=== PATIENT | female | born 1985 | race Caucasian/White ===

== ENCOUNTER 2016-11-17 11:55 | Outpatient (CLI) ==
[2016-04-20 11:19] VITALS: BMI 37.0
--- NOTE | 2016-11-17 16:03 | MRI ---
EXAM: MRI of the left knee without contrast COMPARISON: MRI of the left knee 10/20/2014. Left knee radiographs 10/15/2014. HISTORY: Left knee pain. Injury years ago. TECHNIQUE: Multiplanar noncontrast MR images of the left knee were acquired using a 1.2 Rosa magne t. FINDINGS: The medial and lateral menisci are intact without identification of a surfacing meniscal tear. No parameniscal cyst. Mucoid degeneration versus minimal sprain of the anterior cruciate ligament with some hyperintense s ignal along the ligament though intact fibers are identified. The posterior cruciate ligaments inta ct. Medial collateral ligament, lateral collateral ligament complex and posterolateral corner ligam ents are intact. Mild distal quadriceps minimal patellar tendinosis. No evidence of a tendon tear. 5 mm lateral subluxation of the patella. There is chondromalacia patella with minimal fibrillation of the cartilage of the patella. No full- thickness cartilage defect. No evidence of an acute fracture, osteomyelitis or focal marrow lesion. Small joint effusion. Slit-like popliteal cyst. No osteochondral body. No soft tissue mass ident ified. IMPRESSION: 1. Intact menisci. 2. Chondromalacia patella/minimal patellar chondrosis. 3. Mild patellar/quadriceps tendinosis with mild lateral subluxation of the patella. 4. Small joint effusion. Slit-like popliteal cyst. 4. Mucoid degeneration versus minimal sprain of the anterior cruciate ligament with intact fibers i dentified.
== END 2016-11-17 11:56 | disposition home or self-care (01) ==
LOC: RAD 11:55
PROVIDERS: ATTEND Emergency Medicine
DX: M25.562 Pain in left knee (principal)

== ENCOUNTER 2017-02-10 08:54 | Outpatient (CLI) ==
[2016-04-20 11:19] VITALS: BMI 37.0
--- NOTE | 2017-02-10 11:21 | MRI ---
EXAM: MRI of the right knee without contrast COMPARISON: None available. HISTORY: Right knee pain. TECHNIQUE: Multiplanar noncontrast MR images of the right knee were acquired using a 1.2 Rosa magn et. FINDINGS: No recent radiographs of the right knee are available for comparison and radiographic cor relation is recommended. The medial and lateral menisci are intact without identification of a surfacing meniscal tear. The anterior and posterior cruciate ligaments are intact. Small cyst within the femur and tibia marisol ng the margin of the intercondylar notch/tibial spines which likely degenerative in nature. The med ial collateral ligament, lateral collateral ligament complex and posterolateral corner ligaments are intact. Minimal patellar/quadriceps tendinosis without abnormal subluxation of the patella. Subcu taneous edema anteriorly. There is moderate thinning of the cartilage of the patella with fissuring of the cartilage along the median ridge as well as the medial and lateral facet. No evidence of an acute fracture or osteomye litis. Small bone island within the lateral femoral condyle. Small joint effusion. Slit-like popli teal cyst. No osteochondral body within the joint. IMPRESSION: 1. Intact menisci. 2. Minimal patellar/quadriceps tendinosis. Subcutaneous edema anteriorly. 3. Moderately severe patellar chondrosis. Small bone island within the lateral femoral condyle.
== END 2017-02-10 08:55 | disposition home or self-care (01) ==
LOC: RAD 08:54
PROVIDERS: ATTEND Emergency Medicine
DX: M25.561 Pain in right knee (principal)

== ENCOUNTER 2017-11-27 11:31 | Outpatient (CLI) ==
[2016-04-20 11:19] VITALS: BMI 37.0
== END 2017-11-27 11:32 | disposition home or self-care (01) ==
LOC: RHC-LAB 11:31
PROVIDERS: ATTEND Nurse Practitioner Family
DX: J02.9 Acute pharyngitis, unspecified (principal)
CPT/HCPCS: 87651

== ENCOUNTER 2017-12-07 16:07 | Outpatient (CLI) ==
[2016-04-20 11:19] VITALS: BMI 37.0
== END 2017-12-07 16:08 | disposition short-term general hospital (02) ==
LOC: AMBL 16:07
PROVIDERS: ATTEND Emergency Medicine
DX: T42.8X2A Poisoning by antiparkinsonism drugs and other central muscle-tone depressants, intentional self-harm, initial encounter (principal); R40.4 Transient alteration of awareness; R53.83 Other fatigue; R47.81 Slurred speech

== ENCOUNTER 2018-01-19 11:00 | Outpatient (RCR) ==
[2016-04-20 11:19] VITALS: BMI 37.0
--- NOTE | 2018-01-03 13:28 | RS.OPPTEV2 ---
Date of Note: 01/03/18 Visit #: 1 Date of Evaluation: 01/03/18 Payer Source: Medicaid Treatment Diagnosis: Left knee pain, Chondromalacia patella History of Condition/Mechanism of Injury:: Patient reports having problems with knee pain since she was 14 years old. States both knees bother her off and on. Reports no patellar dislocation. Prior Level of Function.....Patient was independent with: ADL's, Self Care, Caregiving, Ambulation/Mobility, Community Integration/Access Functional Limitations: Sleep, ADL's, Standing, Bending, Squatting, Ambulation, Community Access/Integration Current Subjective/complaints:: Patient reports left knee pain. States she has popping and grinding in the knee with movement. Reports limited ROM. Reports she has swelling at times in the left knee with activity. States she has tried ice packs to the knees. Reports pain with walking short distances in her home. Treatment Side (optional): Left Medical History Medical History Comments:: History of chronic back pain Surgical History Comments:: No surgeries Smoking Status: Former smoker Hx Home Medications: Ibuprofen Patient's Goals: Her goal is to get relief of knee pain. Pain Assessment - Pain Description Pain Location: left knee Current Pain Intensity: 8.5/10 Worst Pain Intensity: not quantified Functional Outcome Measure LE Functional Scale: 4 (4/80=95% impairment (reviewed w/ patient to make sure of accurate scoring)) - G Codes & Severity Modifier G Codes & Modifier: NA Source of G Code score: NA Observation - Observation Inspection: Left knee exhibits infrapatellar bursitis. Both knees demonstrate friction burn/scabbing over the tibial tuberosity. In standing with feet pointed forward, bilateral patella face laterally. She exhibits slight right genu varus and less longitudinal arch on the right LE. Girth Measurement Lower: superior patella: left 44.5 cm, right 43.5 cm. mid patella: left 43 cm, right 43 cm. inferior patella: left 40.5 cm, right 39 cm (left was meaured over infrapatellar bursa) Gait - Gait Pattern Gait Comments: Patient ambulates without an assistive device independently. She demonstrates no significant gait deviation. - Left Knee ROM Left Knee Extension: full extension Left Knee Flexion: 90 (degrees AROM) Knee ROM Limitations: Pain Comments: *patient first flexes the knee to ~35 degrees, after encouragment to try a little more, she flexes the knee to 90 degrees. Demonstrates crepitus with ROM. - Right Knee ROM Right Knee Extension: full extension Right Knee Flexion: 85 (degrees AROM) Knee ROM Limitations: Pain Comments: Crepitus present with ROM. - Left Knee Strength Left Knee Extension: 4- Good- Left Knee Flexion: 4+ Good + Comments: Left hip generally 4-/5 throughout. - Right Knee Strength Right Knee Extension: 4 Good Right Knee Flexion: 4+ Good + Comments: Right hip generally 4 to 4+/5 throughout. - Special Tests Comments: Unable to perform valid Special Tests due to patients reports of pain with all movement and testing. She does not demonstrate hypermobility of either knee joint. Palpation Comments:: Patient reports tenderness with compression to the patella. Reports tenderness with palpation to the quad and patellar tendon and over the infrapatellar bursa. Sensation - Sensation Right Lower Extremity: Intact/Normal Left Lower Extremity: Intact/Normal Additional Comments: Additional Comments: Bilateral HS are tight. In supine, SLR on the left to 40 degrees, right SLR to 30-35 degrees. Demonstrates tight rectus femoris bilaterally. Interventions - Exercise/Activities/Manual Therapy Exercises/Activities: Patient instructed in HS stretch, SLR, and hip adduction isometrics (pillow squeeze) for HEP. Total minutes of Exercise: 10 mins Manual Therapy: NA HOME EXERCISE PROGRAM: HS stretch, SLR, and hip adduction isometrics (pillow squeeze) - Other Services Other Treatments/Services: Taping/Strapping Treatment Details: kinesiotape applied to left knee for lateral stabilization of the patella. Patient instructed that she should remove the tape if it is uncomfortable or she does not like it for any reason. - Charges Timed Code Treatment Minutes: 10 mins Total Treatment Time: 40 mins Procedures billed for this date of service:: EVAL LOW EVALUATION COMPLEXITY LEVEL EVALUATION COMPLEXITY LEVEL: HISTORY: Medium (History of chronic back and knee pain), EXAM OF BODY SYSTEMS: Medium (Reports all mobility limited:amb, transfers , selfcare, ADL's, etc), CLINICAL PRESENTATION: Low, CLINICAL DECISION MAKING: Low Assessment Assessment: Patient presents to therapy with diagnosis of left Chondromalacia patella. She reports knee pain with all ambulation and rates herself to be 95% impaired on LE functional scale. She demonstrates infrapatellar bursitis on the left and exhibits limited knee flexion bilaterally. She demonstrates probable chronic patellar maltracking. She will benefit from modalities to reduce infrapatellar bursitis and stretching and strengthening exercises to improve patellar tracking. Patient Education: Education of diagnosis, Body/Joint mechanics, Home Exercise Program, Activity Modification, Education of Plan of Care Rehab Potential: Good Short Term Goals Goal #1: Pt independent in and compliant with HEP. Goal to be met by: 01/13/18 Goal #2: Left knee flexion to 110 degrees actively. Goal to be met by: 01/17/18 Goal #3: Left SLR to 45-50 degrees. Goal to be met by: 01/17/18 Superintendent Drivers Goals Goal #1: Pt knows HEP and to continue ex's to maintain functional level at D/C. Goal to be met by: 02/17/18 Goal #2: Self score on LE functional scale improved to 40/80. Goal to be met by: 02/17/18 Goal #3: Pt to amb. community distances with minimal left knee pain. Goal to be met by: 02/17/18 Goal #4: Pt able to perform daily selfcare and ADL's with minimal left knee pain. Goal to be met by: 02/17/18 Plan - Treatment to be Provided Procedures: Therapeutic Exercises, Therapeutic Activity, Splinting/Taping, Patient Education Modalities: Electrical Stimulation, Ultrasound/Phonophoresis, Cryotherapy, Hot Packs - Treatment Plan Frequency: 3 X week Duration: 6 weeks ORDER # VISITS AND/OR THROUGH DATE: 02/17/18 - Treatment Code (1) Left knee pain Code(s): M25.562 - PAIN IN LEFT KNEE Qualifiers: Chronicity: chronic Qualified Code(s): M25.562 - Pain in left knee; G89.29 - Other chronic pain; G89.29 - Other chronic pain (2) Maltracking of left patella Code(s): M22.8X2 - OTHER DISORDERS OF PATELLA, LEFT KNEE Comments: M22.8X2 (3) Chondromalacia patellae of left knee Code(s): M22.42 - CHONDROMALACIA PATELLAE, LEFT KNEE Comments: M22.42
--- NOTE | 2018-01-05 15:41 | RS.OPPTDN ---
Subjective Date of Note: 01/05/18 Visit #: 2 Date of Evaluation: 01/03/18 Payer Source: Medicaid Treatment Diagnosis: Left knee pain, Chondromalacia patella Current Subjective/complaints:: patient reports she is performing HS stretch on both legs. States she believes she has had the swelling at the base of the left knee for over a year. Patient states she feels like the kinesio tape to the left knee helped. States it just came off this morning. - Treatment Modality: Ultrasound Parameters/Method Applied: X 7 mins continuous @ 1.5 w/cm2 around the perimeter of the patella, X 5 mins pulsed @ 1.5 w/cm2 directly over the infrapatella bursa. Patient Position: Supine Interventions - Exercise/Activities/Manual Therapy Exercises/Activities: patient assisted with left HS and heel cord stretch. Performed SLR, quad set, hip adduction isometrics, and resisted hip adduction with red theraband. Total minutes of Exercise: X 12 mins Manual Therapy: NA HOME EXERCISE PROGRAM: HS stretch, SLR, and hip adduction isometrics (pillow squeeze) - Other Services Other Treatments/Services: Taping/Strapping Treatment Details: One strip applied for lateral patellar stabilization to the left knee. - Charges Timed Code Treatment Minutes: 24 mins Total Treatment Time: 34 mins Procedures billed for this date of service:: US, EX Assessment: Patient reports she is performing the HS stretching as instructed at home. Reports continued knee pain. Patient Education: Education of diagnosis, Body/Joint mechanics, Home Exercise Program Short Term Goals Goal #1: Pt independent in and compliant with HEP. Goal to be met by: 01/13/18 Goal #2: Left knee flexion to 110 degrees actively. Goal to be met by: 01/17/18 Goal #3: Left SLR to 45-50 degrees. Goal to be met by: 01/17/18 Progress towards Goal:: Progressing Resident Caregiver Goals Goal #1: Pt knows HEP and to continue ex's to maintain functional level at D/C. Goal to be met by: 02/17/18 Goal #2: Self score on LE functional scale improved to 40/80. Goal to be met by: 02/17/18 Goal #3: Pt to amb. community distances with minimal left knee pain. Goal to be met by: 02/17/18 Goal #4: Pt able to perform daily selfcare and ADL's with minimal left knee pain. Goal to be met by: 02/17/18 Plan PLAN OF CARE EXPIRES ON:: 02/17/18 ORDER # VISITS AND/OR THROUGH DATE: 02/17/18 PLAN: Progress streching and stability exercises.
--- NOTE | 2018-01-09 12:01 | RS.OPPTDN ---
Subjective Date of Note: 01/09/18 Visit #: 3 Date of Evaluation: 01/03/18 Payer Source: Medicaid Treatment Diagnosis: Left knee pain, Chondromalacia patella Current Subjective/complaints:: Patient reports she is doing initial HEP. States she cannot stand for long periods due to pain. Pain Assessment - Pain Description Pain Location: Left knee Current Pain Intensity: 8/10 before and after treatment - Treatment Modality: Ultrasound Parameters/Method Applied: [id number] at 1.5w/cm2 to the left knee joint prior to EX. Patient Position: Supine Interventions - Exercise/Activities/Manual Therapy Exercises/Activities: Left HS and heel cord stretch. Performed SLR, quad set, hip adduction, SLR/VMO, SAQ, ham sets, and isometric hip add with ball. In sitting, LAQ and isometric ham sets, 2s/10reps each. In standing mini-squats and ham curls, 2s/10reps each. Ended with 2mins on stationary bike retro revolutions for hamstrings. Total minutes of Exercise: 25mins Manual Therapy: NA HOME EXERCISE PROGRAM: HS stretch, SLR, and hip adduction isometrics (pillow squeeze) - Charges Timed Code Treatment Minutes: 35mins Total Treatment Time: 35mins Procedures billed for this date of service:: US, EX Assessment: Patient demos exercises correct ly with cues and no distress noted. She continues to have a high pain rating. Patient Education: Education of diagnosis, Body/Joint mechanics, Home Exercise Program Patient demonstrates compliance with HEP?: Yes Short Term Goals Goal #1: Pt independent in and compliant with HEP. Goal to be met by: 01/13/18 Progress towards Goal:: Progressing Goal #2: Left knee flexion to 110 degrees actively. Goal to be met by: 01/17/18 Progress towards Goal:: Partially Met Goal #3: Left SLR to 45-50 degrees. Goal to be met by: 01/17/18 Progress towards Goal:: Partially Met Care Home Goals Goal #1: Pt knows HEP and to continue ex's to maintain functional level at D/C. Goal to be met by: 02/17/18 Progress towards goal: Progressing Goal #2: Self score on LE functional scale improved to 40/80. Goal to be met by: 02/17/18 Goal #3: Pt to amb. community distances with minimal left knee pain. Goal to be met by: 02/17/18 Goal #4: Pt able to perform daily selfcare and ADL's with minimal left knee pain. Goal to be met by: 02/17/18 Plan PLAN OF CARE EXPIRES ON:: 02/17/18 ORDER # VISITS AND/OR THROUGH DATE: 02/17/18 PLAN: Continue modalities and progress exercise to reduce pain and increase functional activity level.
--- NOTE | 2018-01-12 15:47 | RS.OPPTDN ---
Subjective Date of Note: 01/12/18 Visit #: 4 Date of Evaluation: 01/03/18 Payer Source: Medicaid Treatment Diagnosis: Left knee pain, Chondromalacia patella Current Subjective/complaints:: Patient reports first treatment of US seems to have reduced pain. She reports she is working on HEP as instructed. Pain Assessment - Pain Description Pain Location: Left knee - Treatment Modality: Ultrasound Parameters/Method Applied: [id number] at 1.5w/cm2 to the left knee joint prior to EX. Patient in supine. Patient Position: Supine Interventions - Exercise/Activities/Manual Therapy Exercises/Activities: Left HS and heel cord stretch. Performed SLR, quad set, hip adduction, SLR/VMO, SAQ, ham sets, isometric hip add with ball, and isometric ankle inversion with ball. Began red theraband for left ankle resistive DF. In sitting, LAQ and isometric ham sets, 2s/10reps each. Red theraband for ham curls. In standing mini-squats and ham curls, 2s/10reps each. Ended with 4mins on stationary bike retro revolutions for hamstrings. Total minutes of Exercise: 28mins Manual Therapy: NA HOME EXERCISE PROGRAM: HS stretch, SLR, and hip adduction isometrics (pillow squeeze), SLR/VMO - Objective Findings Observations,measurements,etc.: Patient demos good gait pattern with no deviations noted. She demos all basic exercises without difficulty. - Charges Timed Code Treatment Minutes: 38mins Total Treatment Time: 40mins Procedures billed for this date of service:: US, EX2 Assessment: Patient progresses with strengthening exercise and demos good gait pattern without distress, but continues to demo a high pain rating. Patient Education: Body/Joint mechanics, Home Exercise Program Patient demonstrates compliance with HEP?: Yes Short Term Goals Goal #1: Pt independent in and compliant with HEP. Goal to be met by: 01/13/18 Progress towards Goal:: Partially Met Goal #2: Left knee flexion to 110 degrees actively. Goal to be met by: 01/17/18 Progress towards Goal:: Partially Met Goal #3: Left SLR to 45-50 degrees. Goal to be met by: 01/17/18 Progress towards Goal:: Partially Met Api Product Manager Goals Goal #1: Pt knows HEP and to continue ex's to maintain functional level at D/C. Goal to be met by: 02/17/18 Progress towards goal: Progressing Goal #2: Self score on LE functional scale improved to 40/80. Goal to be met by: 02/17/18 Goal #3: Pt to amb. community distances with minimal left knee pain. Goal to be met by: 02/17/18 Goal #4: Pt able to perform daily selfcare and ADL's with minimal left knee pain. Goal to be met by: 02/17/18 Plan PLAN OF CARE EXPIRES ON:: 02/17/18 ORDER # VISITS AND/OR THROUGH DATE: 02/17/18 PLAN: Progress strengthening exercise.
--- NOTE | 2018-01-16 12:07 | RS.OPPTDN ---
Subjective Date of Note: 01/16/18 Visit #: 5 Date of Evaluation: 01/03/18 Payer Source: Medicaid Treatment Diagnosis: Left knee pain, Chondromalacia patella Current Subjective/complaints:: Patient reports left knee pain is somewhat better. States she has pain with walking and other standing activities. States she is working on HEP and will see physician tomorrow. Pain Assessment - Pain Description Pain Location: Left knee Current Pain Intensity: 6-7/10 - Treatment Modality: Ultrasound Parameters/Method Applied: [id number] at 1.5w/cm2 to the left knee joint prior to EX. Patient Position: Supine Interventions - Exercise/Activities/Manual Therapy Exercises/Activities: Left HS and heel cord stretch. Performed quad set, ham sets, isometric hip add with ball, and isometric ankle inversion with ball. Added 1 1/2# cuff weight to SLR, hip abd and SAQ, all 2s/10reps. Red theraband for left ankle resistive DF and ham curl, 2s/10reps each. In sitting, LAQ with 1 1/2# and red theraband for ham sets, 2s/10reps each. 5mins on stationary bike retro revolutions for hamstrings. Total minutes of Exercise: 28mins/33mins Manual Therapy: NA HOME EXERCISE PROGRAM: HS stretch, SLR, and hip adduction isometrics (pillow squeeze), SLR/VMO - Objective Findings Observations,measurements,etc.: Full ROM of the right knee at 130 degrees flexion and extension to neutral. Demos 4+/5 MMT with quads and 5/5 with hams. Demos good gait pattern with no deviations noted today. - Charges Timed Code Treatment Minutes: 38mins Total Treatment Time: 43mins Procedures billed for this date of service:: US, EX2 Assessment: Progressing with strnegth, ROM and demos good gait pattern. Patient Education: Education of diagnosis, Body/Joint mechanics, Home Exercise Program, Activity Modification Patient demonstrates compliance with HEP?: Yes Short Term Goals Goal #1: Pt independent in and compliant with HEP. Goal to be met by: 01/13/18 Progress towards Goal:: Met Goal #2: Left knee flexion to 110 degrees actively. Goal to be met by: 01/17/18 Progress towards Goal:: Met Goal #3: Left SLR to 45-50 degrees. Goal to be met by: 01/17/18 Progress towards Goal:: Met Senior Care Goals Goal #1: Pt knows HEP and to continue ex's to maintain functional level at D/C. Goal to be met by: 02/17/18 Progress towards goal: Partially Met Goal #2: Self score on LE functional scale improved to 40/80. Goal to be met by: 02/17/18 Progress towards goal: Progressing Goal #3: Pt to amb. community distances with minimal left knee pain. Goal to be met by: 02/17/18 Goal #4: Pt able to perform daily selfcare and ADL's with minimal left knee pain. Goal to be met by: 02/17/18 Plan PLAN OF CARE EXPIRES ON:: 02/17/18 ORDER # VISITS AND/OR THROUGH DATE: 02/17/18 PLAN: Will see physician tomorrow. May continue current POC with modalities and progressive exercise to reduce pain and increase functional activity level.
--- NOTE | 2018-01-19 11:57 | RS.OPPTDN ---
Subjective Date of Note: 01/19/18 Visit #: 6 Date of Evaluation: 01/03/18 Payer Source: Medicaid Treatment Diagnosis: Left knee pain, Chondromalacia patella Current Subjective/complaints:: Patient continues to report left knee pain at 05/04. States her follow-up with physician has been rescheduled. She agrees to continue HEP as instructed. Pain Assessment - Pain Description Pain Location: Left knee joint Current Pain Intensity: - Treatment Modality: Ultrasound Parameters/Method Applied: [id number] at 1.5w/cm2 to the left knee joint. Interventions - Exercise/Activities/Manual Therapy Exercises/Activities: Left HS and heel cord stretch. Performed quad set, ham sets, isometric hip add with ball, and isometric ankle inversion with ball. 1 1 /2# cuff weight to SLR, hip abd and increased to 3# for SAQ, all 2s/10reps. Red theraband for left ankle resistive DF and ham curl, 2s/10reps each. Red theraband for hip abd and add with knee in full extension, 2s/10reps. In sitting, LAQ with 1 1/2# and red theraband for ham sets, 2s/10reps each. Leg press 60# and ankle df/pf 60#, 2s/10reps each. 5mins on stationary bike retro revolutions for hamstrings. Total minutes of Exercise: 30mins Manual Therapy: NA HOME EXERCISE PROGRAM: HS stretch, SLR, and hip adduction isometrics (pillow squeeze), SLR/VMO - Objective Findings Observations,measurements,etc.: Patient demos full ROM of the left knee. She demos 4+/5MMT and no signs of distress with resistive strengthening exercises. No gait deviations noted before or after exercise session. - Charges Timed Code Treatment Minutes: 40mins Total Treatment Time: 40mins Procedures billed for this date of service:: US, EX2 Assessment: Patient continues to have a high pain rating but demos full ROM, good strength and no gait deviation. She demos basic HEP and will continue following discharge. Patient Education: Home Exercise Program, Home Safety, Activity Modification, Education of Plan of Care Patient demonstrates compliance with HEP?: Yes Short Term Goals Goal #1: Pt independent in and compliant with HEP. Goal to be met by: 01/13/18 Progress towards Goal:: Met Goal #2: Left knee flexion to 110 degrees actively. Goal to be met by: 01/17/18 Progress towards Goal:: Met Goal #3: Left SLR to 45-50 degrees. Goal to be met by: 01/17/18 Progress towards Goal:: Met Jet Operator Goals Goal #1: Pt knows HEP and to continue ex's to maintain functional level at D/C. Goal to be met by: 02/17/18 Progress towards goal: Met Goal #2: Self score on LE functional scale improved to 40/80. Goal to be met by: 02/17/18 Progress towards goal: Progressing Goal #3: Pt to amb. community distances with minimal left knee pain. Goal to be met by: 02/17/18 Progress towards goal: No Change Goal #4: Pt able to perform daily selfcare and ADL's with minimal left knee pain. Goal to be met by: 02/17/18 Progress towards goal: No Change Plan PLAN OF CARE EXPIRES ON:: 02/17/18 ORDER # VISITS AND/OR THROUGH DATE: 02/17/18 PLAN: Discharge with HEP.
== END 2018-01-22 23:59 ==
PROVIDERS: ATTEND Physician Assistant
DX: M22.42 Chondromalacia patellae, left knee (principal)

== ENCOUNTER 2018-01-31 14:50 | Outpatient (CLI) ==
[2016-11-17 11:59] VITALS: BMI 37.0
--- NOTE | 2018-01-31 15:51 | DI ---
EXAM: Three views of the cervical spine. History: Cervical radiculopathy. Comparison: Cervical spine radiograph 12/08/2011 Findings: No acute fracture or subluxation of the cervical spine. No prevertebral soft tissue swell ing. There is straightening of the normal curvature of the cervical spine. Disc space heights are p reserved. Small cervical ribs are again seen at C7 bilaterally. Impression: No acute osseous abnormality and no significant degenerative changes.
--- NOTE | 2018-01-31 15:57 | DI ---
EXAM: Lumbar spine radiographs. HISTORY: Back pain. COMPARISON: 04/01/2015. TECHNIQUE: Three views of the lumbar spine. FINDINGS: The normal curvature and alignment are maintained. Vertebral body and intervertebral disc heights are normal. No fracture or subluxation identified. Sacral arcuate lines are intact. Soft tissues are unremarkable. Since the prior study, there has been no significant interval change. IMPRESSION: No acute abnormality of the lumbar spine.
== END 2018-01-31 14:51 | disposition home or self-care (01) ==
LOC: RAD 14:50
PROVIDERS: ATTEND Emergency Medicine
DX: M54.12 Radiculopathy, cervical region (principal); M54.9 Dorsalgia, unspecified

== ENCOUNTER 2018-02-14 10:11 | Outpatient (RCR) ==
[2016-11-17 11:59] VITALS: BMI 37.0
--- NOTE | 2018-02-16 11:44 | RS.OPPTEV2 ---
Date of Note: 02/14/18 Visit #: 1 Date of Evaluation: 02/14/18 Payer Source: Medicaid Treatment Diagnosis: Low back pain History of Condition/Mechanism of Injury:: Patient states she has been having back since 2006. She has been attending Pain Management since 2007. States she has had no recent exaggeration of back pain. Prior Level of Function.....Patient was independent with: ADL's, Self Care, Caregiving, Ambulation/Mobility, Community Integration/Access Functional Limitations: Sleep, ADL's, Pushing, Pulling, Lifting, Carrying, Sitting, Standing, Bending, Squatting, Ambulation, Community Access/Integration Current Subjective/complaints:: Patient reports low back pain with any prolonged position. States she has constant pain into the left LE. States she has difficulty sleeping, waking up four or more times a day. States Dr. Soliman wanted her to have therapy on her back. Reports she gets tingling into the left leg to the knee. Medical History Medical History Comments:: History of chronic back pain Surgical History Comments:: No surgeries Smoking Status: Former smoker Hx Home Medications: Did not list medications. Only reports Ibuprofen. Patient's Goals: Her goal is to get some relief of pain. Pain Assessment - Pain Description Pain Location: low back Current Pain Intensity: 9/10 Worst Pain Intensity: not quantified Functional Outcome Measure Oswestry LBP: 76 - G Codes & Severity Modifier G Codes & Modifier: NA Source of G Code score: NA Observation - Observation Posture: Forward Head, Rounded Shoulders, Decreased Lumbar Lordosis Gait - Gait Pattern Gait Comments: Patient ambulates without an assistive device and no significant gait deviations. - ROM Lumbar Flexion: Hand reach to Mid-Shins Sidebending to Left: Reach to Lateral Joint Line Sidebending to Right: Reach to Lateral Joint Line Comments: Lumbar extension is WFL's. Reports discomfort with lumbar flexion and extension. Reports "pulling" in the low back with sidebending bilaterally. - Strength Trunk Rotation: 4 Good Comments: General hip weakness bilaterally 4 to 4+/5. Bilateral knee strength 4 +/5, ankles 5/5. - Special Tests Comments: Unable to perform valid Special Tests due to reports of pain with all ROM and movement in the department. Palpation Comments:: Reports generalized soreness throughout the lumbar spine and SI joint region with palpation. Demostrates minimal increased muscle tone along the lumbar paraspinals. Sensation - Sensation Right Lower Extremity: Intact/Normal Left Lower Extremity: Intact/Normal Additional Comments: Additional Comments: Bilateral SLR to 35 degrees in supine. Interventions - Exercise/Activities/Manual Therapy Exercises/Activities: Patient instructed in HS stretch for home. Total minutes of Exercise: X 6 mins Manual Therapy: NA HOME EXERCISE PROGRAM: HS stretch - Charges Timed Code Treatment Minutes: 6 mins Total Treatment Time: 48 mins Procedures billed for this date of service:: EVAL EVALUATION COMPLEXITY LEVEL EVALUATION COMPLEXITY LEVEL: HISTORY: Medium (Hx of back pain and procedures by Pain Management for years), EXAM OF BODY SYSTEMS: Medium (Limitation of ADL's, sleep, ambulation), CLINICAL PRESENTATION: Medium, CLINICAL DECISION MAKING: Medium Assessment Assessment: Patient presents to therapy today with a diagnosis of back pain. She reports a long history of back pain, since 2006. She has been through years of Pain Management procedures, but reports never having therapy for her back before now. She presents with a high pain profile, reporting pain with most movements and any prolonged position. Pain limited the ability to perform valid Special Tests. She describes constant pain into the left LE, along with vague reports of tingling to the knee. She demonstrates general weakness at her hips and marked tightness in her hamstrings bilaterally. She demonstrates fair potential to benefit from stretching and trunk/LE strengthening to improve her ability to perform daily activities with less back pain. Patient Education: Education of diagnosis, Body/Joint mechanics, Home Exercise Program, Activity Modification, Education of Plan of Care Rehab Potential: Fair Short Term Goals Goal #1: Pt independent in and compliant with HEP. Goal to be met by: 03/02/18 Goal #2: Bilateral hip strength 4+/5. Goal to be met by: 03/02/18 Goal #3: Bilateral SLR to 45 degrees. Goal to be met by: 03/02/18 Cafeteria Food Server Goals Goal #1: Pt knows HEP and to continue ex's to maintain functional level at D/C. Goal to be met by: 03/23/18 Goal #2: Score on Oswestry LBP scale improved to 50. Goal to be met by: 03/23/18 Goal #3: Pt to amb. community distances with back pain <6/10. Goal to be met by: 03/23/18 Goal #4: Pt able to perform daily selfcare and ADL's with back pain <6/10. Goal to be met by: 03/23/18 Plan - Treatment to be Provided Procedures: Therapeutic Exercises, Therapeutic Activity, Patient Education Modalities: Electrical Stimulation, Ultrasound/Phonophoresis, Cryotherapy, Hot Packs Other:: Modalities if necessary, main focus on exercise - Treatment Plan Frequency: 3 X week Duration: 4 weeks ORDER # VISITS AND/OR THROUGH DATE: 03/23/18 - Treatment Code (1) Low back pain Code(s): M54.5 - LOW BACK PAIN Qualifiers: Chronicity: chronic Back pain laterality: unspecified Sciatica presence: unspecified whether sciatica present Qualified Code(s): M54.5 - Low back pain ; G89.29 - Other chronic pain
== END 2018-02-22 23:59 ==
PROVIDERS: ATTEND Emergency Medicine
DX: M54.5 Low back pain (principal); G89.29 Other chronic pain

== ENCOUNTER 2018-02-27 13:44 | Outpatient (RCR) ==
[2016-11-17 11:59] VITALS: BMI 37.0
--- NOTE | 2018-02-27 13:57 | RS.OPPTDN ---
Subjective Date of Note: 02/27/18 Visit #: 2 Date of Evaluation: 02/14/18 Payer Source: Medicaid Treatment Diagnosis: Low back pain Current Subjective/complaints:: Patient reports she has had back pain for several years. States she has "bad arthritis". No c/o pain with exercise today. Pain Assessment - Pain Description Pain Location: lowback Current Pain Intensity: does not rate Interventions - Exercise/Activities/Manual Therapy Exercises/Activities: Begins with HS stretching. Isometric hip add and hip flexion. Alt hip flexion with 4# to each LE. Double LE lift with ball between knees. SLR. All 2s/10reps each. In sitting green theraband for scap retraction. Sitting on ball for trunk stability while perform bilateral shldr flex with 3# wand, overhead reach and diagonals with light ball, and retraction with green theraband, all 2s/10reps. In standing, green theraband for hip ext, 2s/10reps. Leg press 45#, 25reps. Ended with stationary bike 10mins. Total minutes of Exercise: 38mins/48mins Manual Therapy: NA HOME EXERCISE PROGRAM: HS stretch - Objective Findings Observations,measurements,etc.: Demos good gait pattern without deviation or signs of distress. - Charges Timed Code Treatment Minutes: 38mins Total Treatment Time: 48mins Procedures billed for this date of service:: EX3 Assessment: Patient able to perform all strengthening exercises without distress noted or reports of pain. Patient needs to be commited to trunk strengtheing and progressing a walking program. Patient Education: Body/Joint mechanics, Home Exercise Program, Activity Modification Comments: Patient education of dx, body mechanics, safety with ADL's, and benefits of a consistnet HEP. Patient demonstrates compliance with HEP?: Yes Short Term Goals Goal #1: Pt independent in and compliant with HEP. Goal to be met by: 03/02/18 Progress towards Goal:: Progressing Goal #2: Bilateral hip strength 4+/5. Goal to be met by: 03/02/18 Progress towards Goal:: Progressing Goal #3: Bilateral SLR to 45 degrees. Goal to be met by: 03/02/18 Progress towards Goal:: Progressing Technical Developer Goals Goal #1: Pt knows HEP and to continue ex's to maintain functional level at D/C. Goal to be met by: 03/23/18 Progress towards goal: Progressing Goal #2: Score on Oswestry LBP scale improved to 50. Goal to be met by: 03/23/18 Goal #3: Pt to amb. community distances with back pain <6/10. Goal to be met by: 03/23/18 Goal #4: Pt able to perform daily selfcare and ADL's with back pain <6/10. Goal to be met by: 03/23/18 Plan PLAN OF CARE EXPIRES ON:: 03/23/18 ORDER # VISITS AND/OR THROUGH DATE: 03/23/18 PLAN: Progress with strengthening to reduce pain.
--- NOTE | 2018-03-02 14:35 | RS.CXNS ---
Date of scheduled appointment: 03/02/18 Type: No Show
--- NOTE | 2018-03-21 11:23 | RS.QUICKDC ---
Discharge from PT Date of Discharge: 03/21/18 Number of Visits: 2 Reason for Discharge: This patient only attended a total of 2 visits. She no showed her next appointment and has not contacted this department to reschedule. Discharged due to lack of attendance.
== END 2018-03-24 23:59 ==
PROVIDERS: ATTEND Emergency Medicine
DX: M54.5 Low back pain (principal); G89.29 Other chronic pain

== ENCOUNTER 2018-03-29 19:58 | Outpatient (CLI) ==
[2016-11-17 11:59] VITALS: BMI 37.0
== END 2018-03-29 19:59 | disposition home or self-care (01) ==
LOC: LAB 19:58
PROVIDERS: ATTEND Emergency Medicine
DX: F31.9 Bipolar disorder, unspecified (principal); F33.9 Major depressive disorder, recurrent, unspecified; E66.9 Obesity, unspecified
CPT/HCPCS: 36415; 80053; 80061; 84443; 85025

== ENCOUNTER 2018-04-04 10:07 | Outpatient (CLI) ==
[2016-11-17 11:59] VITALS: BMI 37.0
--- NOTE | 2018-04-04 11:05 | DI ---
Exam: Three views of the right shoulder. Comparison: 05/18/2009 Reason for exam: Pain. FINDINGS: No acute fracture or dislocation. The humeral head articulates with the bony glenoid. Th e clavicle is intact. The scapular Y-view is unremarkable. Impression: No acute fracture or dislocation is seen in the right shoulder.
--- NOTE | 2018-04-04 11:09 | DI ---
Exam: Two views of the left tibia and fibula with three images. Comparison: None available. Reason for exam: Pain in leg. FINDINGS: No acute fracture or malalignment. The cortices are intact. No unexplained calcific soft tissue density or radiopaque retained foreign body. Impression: No acute fracture or dislocation in the left tibia or fibula.
== END 2018-04-04 10:08 | disposition home or self-care (01) ==
LOC: RAD 10:07
PROVIDERS: ATTEND Emergency Medicine
DX: M79.605 Pain in left leg (principal); M25.511 Pain in right shoulder

== ENCOUNTER 2018-05-07 13:52 | Outpatient (CLI) ==
[2016-11-17 11:59] VITALS: BMI 37.0
== END 2018-05-07 13:53 | disposition home or self-care (01) ==
LOC: RHC-LAB 13:52
PROVIDERS: ATTEND Emergency Medicine
DX: J02.9 Acute pharyngitis, unspecified (principal); F31.9 Bipolar disorder, unspecified
CPT/HCPCS: 36415; 80164; 87651

== ENCOUNTER 2018-06-21 21:13 | Outpatient (CLI) ==
[2016-11-17 11:59] VITALS: BMI 37.0
== END 2018-06-21 21:31 | disposition short-term general hospital (02) ==
LOC: AMBL 21:13
PROVIDERS: ATTEND Family Medicine
DX: T42.6X1A Poisoning by other antiepileptic and sedative-hypnotic drugs, accidental (unintentional), initial encounter (principal); F10.129 Alcohol abuse with intoxication, unspecified; R41.82 Altered mental status, unspecified; R00.0 Tachycardia, unspecified

== ENCOUNTER 2018-07-11 08:48 | Outpatient (RCR) ==
[2016-11-17 11:59] VITALS: BMI 37.0
--- NOTE | 2018-07-12 08:12 | RS.OPPTEV2 ---
Date of Note: 07/11/18 Visit #: 1 Number of visits approved by Insurance: pending approval Date of Evaluation: 07/11/18 Payer Source: Medicaid Surgery Performed?: No Treatment Diagnosis: R shld pain History of Condition/Mechanism of Injury:: pt states her R shld has hurt since 2011. Prior Level of Function.....Patient was independent with: ADL's, Self Care, Caregiving, Ambulation/Mobility, Community Integration/Access Functional Limitations: Sleep, Pushing, Pulling, Lifting, Carrying Current Subjective/complaints:: pt states that her shld has hurt for several years and that the pain interrupts sleep, as well as limits ability to perform normal activity. Treatment Side (optional): Right *Precautions: n/a Medical History Medical History: Arthritis Medical History Comments:: History of chronic back pain Surgical History Comments:: No surgeries Smoking Status: Current every day smoker Diagnostic Testing/Imaging:: none Hx Home Medications: zanaflex, depakote, wellbutrin, ceprexa, ibuprofen Patient's Goals: decrease shld pain Pain Assessment - Pain Description Pain Location: R shld Pain Description: Sharp, Aching, Chronic Current Pain Intensity: 9 Functional Outcome Measure UE Functional Index: 28 - G Codes & Severity Modifier G Codes & Modifier: n/a Source of G Code score: n/a Observation - Observation Posture: Forward Head, Rounded Shoulders Handedness: Right Gait - Gait Pattern General Gait Pattern Observation: No Deviations/Normal General Range of Motion: LUE WFL's. BLE WFL's Muscle Strength: BLE 5/5. LUE 5/5 Shoulder ROM: Left WFL's Shoulder Muscle Strength: Left WFL's - Right Shoulder ROM Right Shoulder Flexion: 137 (AROM with pain) Right Shoulder Abduction: 128 (AROM with pain) Right Shoulder ROM Limitations: Soft Tissue Tightness, Muscle Weakness, Pain Comments: IR and ER WFL's with pain - Right Shoulder Strength Right Shoulder Flexion: 4- Good- Right Shoulder Extension: 4- Good- Right Shoulder Abduction: 4- Good- Right Shoulder Adduction: 4 Good - Special Tests Shoulder Empty Can (Supraspinatus) Test: Positive Right Shoulder Speed's Sign Test: Negative Right Palpation Palpation Findings: Tenderness Comments:: in anterior shld to palpation Sensation - Sensation Right Upper Extremity: Intact/Normal Left Upper Extremity: Intact/Normal Right Lower Extremity: Intact/Normal Left Lower Extremity: Intact/Normal Balance - Sitting Balance Static Sitting Balance: Normal Dynamic Sitting Balance: Normal - Standing Balance Static Standing Balance: Normal Dynamic Standing Balance: Normal - Treatment Modality: Ultrasound Parameters/Method Applied: 1.5w/cm2 x 7 mins Treatment Area: R shld Patient Position: Sitting - Heat/Cryotherapy Treatment: Cryotherapy Comments:: R shld Interventions - Exercise/Activities/Manual Therapy Exercises/Activities: pt performed pendulum ex, scapular retraction, upper trap stretch Manual Therapy: NA HOME EXERCISE PROGRAM: pt received written HEP including scapular retraction, upper trap stretch, pendulum. - Charges Timed Code Treatment Minutes: 47 Total Treatment Time: 51 Procedures billed for this date of service:: eval low, ultrasound, cold pack EVALUATION COMPLEXITY LEVEL EVALUATION COMPLEXITY LEVEL: HISTORY: Low (OA), EXAM OF BODY SYSTEMS: Medium ( pain, strength, ROM), CLINICAL PRESENTATION: Low, CLINICAL DECISION MAKING: Low Assessment Assessment: pt presents with R shld pain with symptoms consistent with supraspinatus tendonitis. pt presents with pain, decreased strength, as well as limited ROM. Patient Education: Home Exercise Program, Education of Plan of Care Rehab Potential: Good Short Term Goals Goal #1: pt independent with initial HEP Goal to be met by: 07/25/18 Goal #2: Improve strength R shld 4+/5 Goal to be met by: 07/25/18 Goal #3: ROM R shld flex 150 abd 135 Goal to be met by: 07/25/18 Goal #4: pt rate pain < 7 with activity Goal to be met by: 07/25/18 Senior Living Goals Goal #1: pt report ability to perform normal household duties with less pain Goal to be met by: 08/10/18 Goal #2: pt report decreased pain to allow uninterrupted sleep x 4-5 hours Goal to be met by: 08/10/18 Goal #3: Improve R shld ROM WFL's Goal to be met by: 08/10/18 Goal #4: UE functional index > 35/80 Goal to be met by: 08/10/18 Plan - Treatment to be Provided Procedures: Therapeutic Exercises, Therapeutic Activity, Manual Therapy, Patient Education Modalities: Electrical Stimulation, Ultrasound/Phonophoresis, Cryotherapy, Hot Packs - Treatment Plan Frequency: 2 X week Duration: 4 weeks Dates of Senior Living Goals: 08/10/18 Expiration date of current Insurance Approval:: pending approval - Treatment Code (1) Supraspinatus tendonitis Code(s): M75.90 - SHOULDER LESION, UNSPECIFIED, UNSPECIFIED SHOULDER Qualifiers: Laterality: right Qualified Code(s): M75.91 - Shoulder lesion, unspecified , right shoulder (2) Right shoulder pain Code(s): M25.511 - PAIN IN RIGHT SHOULDER Qualifiers: Chronicity: chronic Qualified Code(s): M25.511 - Pain in right shoulder; G89.29 - Other chronic pain (3) Muscle weakness Code(s): M62.81 - MUSCLE WEAKNESS (GENERALIZED)
== END 2018-07-25 23:59 ==
PROVIDERS: ATTEND Family Medicine
DX: M25.511 Pain in right shoulder (principal); G89.29 Other chronic pain; M75.91 Shoulder lesion, unspecified, right shoulder; M62.81 Muscle weakness (generalized)

== ENCOUNTER 2018-07-11 09:40 | Outpatient (CLI) ==
[2016-11-17 11:59] VITALS: BMI 37.0
--- NOTE | 2018-07-11 14:59 | DI ---
Exam: Chest two-view HISTORY: Chest pain. Comparison: 08/22/2011. FINDINGS: Two views of the chest demonstrate moderately expanded lungs with no evidence of pneumonia or edema. The heart is normal in size and configuration. The pulmonary vasculature is not congeste d. The skeletal structures are intact. IMPRESSION: No acute cardiopulmonary disease.
== END 2018-07-11 09:41 | disposition home or self-care (01) ==
LOC: RAD 09:40
PROVIDERS: ATTEND Family Medicine
DX: R07.9 Chest pain, unspecified (principal)

== ENCOUNTER 2018-08-13 09:16 | Outpatient (CLI) | payer MEDICAID, OTHER ==
[2016-11-17 11:59] VITALS: BMI 37.0
--- NOTE | 2018-08-13 13:22 | MRI ---
EXAM: MRI right shoulder without contrast. HISTORY: Right shoulder pain. Decreased range of motion. Straining injury several years ago. No r ight shoulder surgery reported.. TECHNIQUE: Using a local coil on a high field strength magnet multiplanar multisequence magnet reson ance imaging performed of the right shoulder without intravenous or intra-articular gadolinium contra st.. COMPARISON: Three-view plain film examination right shoulder 04/04/2018.. FINDINGS: A Type I acromion. Coracoacromial ligament/arch intact without definitive thickening. Ri ght acromioclavicular joint within normal limit in appearance. Deltoid musculature normal signal int ensity. Trace fluid subacromial/subdeltoid bursa. Muscle bulk of the rotator cuff shows no acute muscle strain or overt atrophy. Supraspinatus tendino sis over the insertion and critical zone. Bursal sided fraying/shallow partial thickness bursal side d tearing. No full-thickness rotator cuff tear identified. Minimal infraspinatus tendinosis. Poste rior inferior intact teres minor tendon fibers. Anterior intact subscapularis tendon fibers. The lo ng head of the biceps tendon shows intact fibers located in expected position within the bicipital gr oove and within normal limits signal intensity and morphology. The right humeral head is of normal morphology and seated. No right glenohumeral joint centered subc hondral bone marrow edema or bone erosions. Physiologic amount fluid right glenohumeral joint. Righ t glenoid labrum grossly intact on this non-arthrographic examination.. IMPRESSION: Supraspinatus tendinosis over the insertion and critical zone. Bursal sided fraying/sha llow partial thickness bursal sided tearing. No full-thickness rotator cuff tear identified. Trace f luid subacromial/subdeltoid bursa may reflect an overlying degree bursitis and/or be sequela prior sh oulder injection. Correlate clinically. Minimal infraspinatus tendinosis.
== END 2018-08-13 09:17 | disposition home or self-care (01) ==
LOC: RAD 09:16
PROVIDERS: ATTEND Family Medicine
DX: M25.511 Pain in right shoulder (principal); G89.29 Other chronic pain

== ENCOUNTER 2018-11-07 13:36 | Outpatient (CLI) ==
[2016-11-17 11:59] VITALS: BMI 37.0
== END 2018-11-07 13:37 | disposition home or self-care (01) ==
LOC: LAB 13:36
PROVIDERS: ATTEND Family Medicine
DX: R00.2 Palpitations (principal); F31.9 Bipolar disorder, unspecified; Z51.81 Encounter for therapeutic drug level monitoring; F33.9 Major depressive disorder, recurrent, unspecified; D72.829 Elevated white blood cell count, unspecified
CPT/HCPCS: 36415; 80053; 80164; 82607; 83615; 84443; 85025; 93005; 93010

== ENCOUNTER 2018-11-22 12:54 | Outpatient (CLI) | payer MEDICAID, OTHER ==
[2016-11-17 11:59] VITALS: BMI 37.0
--- NOTE | 2018-11-26 14:58 | HOLTER ---
PATIENT INFORMATION AND COMMENTS Attending Physician: DR. ANNA MARIE KLINE Indications: PALPITATIONS, BIPOLAR DISORDER __ Patient Medications: VITAMIN B, IRON __ Pre-procedure Summary: Protocol: Standard Heart Rate Started: 11/22/18 1315 Minimum: 61 BPM Weight: 193 LBS Ended: 11/23/18 1257 Maximum: 137 BPM Height: 63" Duration: 23 HR 41 MIN Average: 88 BPM _ INTERPRETATIONS/OBSERVATIONS: 1. BASIC RHYTHM: SINUS, RATE 60 BPM TO 130 BPM, AVERAGE 90 BPM 2. RARE PAC'S AND PVC'S 3. NO ST-T WAVE CHANGES FROM BASELINE 4. NO CORRELATION WITH ACTIVITY LOG MTDD
== END 2018-11-22 12:55 | disposition home or self-care (01) ==
LOC: CAR 12:54
PROVIDERS: ATTEND Family Medicine
DX: F31.9 Bipolar disorder, unspecified (principal); R00.2 Palpitations
CPT/HCPCS: 93227

== ENCOUNTER 2019-01-03 13:07 | Outpatient (CLI) ==
[2016-11-17 11:59] VITALS: BMI 37.0
--- NOTE | 2019-01-03 14:36 | CT ---
EXAM: CT thoracic spine. HISTORY: Thoracic pain, intercostal neuritis. TECHNIQUE: CT thoracic spine without contrast. Multiplanar images provided. FINDINGS: The thoracic spine has normal vertebral body height and alignment. There is no noticeable degenerati ve disc or facet disease. No fracture. No central canal stenosis or paraspinal fluid collection/mas s. IMPRESSION: 1. Findings within normal limits. If concern is persistent, consider correlation with MRI.
== END 2019-01-03 13:08 | disposition home or self-care (01) ==
LOC: RAD 13:07
PROVIDERS: ATTEND Pain Medicine Interventional Pain Medicine
DX: G58.0 Intercostal neuropathy (principal); G54.8 Other nerve root and plexus disorders; M54.6 Pain in thoracic spine

== ENCOUNTER 2019-02-14 15:26 | Outpatient (CLI) ==
[2019-02-14 16:00] VITALS: BMI 36.1
== END 2019-02-14 15:39 | disposition critical access hospital (66) ==
LOC: AMBL 15:26
PROVIDERS: ATTEND Internal Medicine
DX: R47.81 Slurred speech (principal); R40.4 Transient alteration of awareness; T45.2X2A Poisoning by vitamins, intentional self-harm, initial encounter; T42.8X2A Poisoning by antiparkinsonism drugs and other central muscle-tone depressants, intentional self-harm, initial encounter; T43.292A Poisoning by other antidepressants, intentional self-harm, initial encounter

== ENCOUNTER 2019-02-14 15:46 | Emergency (ER) ==
[2019-02-14 16:00] VITALS: BMI 36.1
[2019-02-14] MEDS ORDERED: INSTA-CHAR W/ SORBITOL PO STA (16:28)
[2019-02-14] MEDS ORDERED: INSTA-CHAR IN AQUEOUS BASE PO STA (16:47)
[2019-02-14] MEDS ORDERED: LORAZEPAM ONE (17:13)
[2019-02-14] MEDS ORDERED: ANECTINE ONE (17:15)
[2019-02-14] MEDS ORDERED: AMIDATE IVP ONE (17:28)
[2019-02-14] MEDS ORDERED: NORCURON IVP STA (17:37)
[2019-02-14] MEDS ORDERED: DIPRIVAN 100 ML VIAL 100 ML IV ONE (17:46)
--- NOTE | 2019-02-14 17:50 | ED.PDOC ---
Procedures - Intubation Indication: Present: Altered Mental Status Time of Intubation: 17:50 Medications: Yes: Succinylcholine, Other (amidate 20mg followed by 100mg anectine per Dr Garcia) Type of Tube Used: Endotracheal Tube Size: 7 Cricoid Pressure Used: Yes Tube Jeffers Used: Yes Position of Tube at Lip: 22 Number of Attempts: 1 Suction Used: Yes Glidescope Used: Yes CO2 Detector Used: Yes Lung Sounds Equal Bilaterally: Yes Intubation Complications: Present: No complications Tube Inserted By: Dr Garcia/ Torsten Cardozo CRNA Tube Placement Verified by X-ray: Yes Conscious Sedation - Pre-op Assessment Weight: 204 lb 5.896 oz Surgical History: TUBES IN EARS, ADENOIDS REMOVED - Medical History Past Medical History: Depression, Anxiety, Bipolar, Other Other History: EXPLOSIVE DISORDER - Physical Exam Heart Rate/Rhythm: Regular Rhythm, Tachycardia
[2019-02-14] MEDS ORDERED: DIPRIVAN 100 ML VIAL 1,000 MG in PREMIX INFUSION 100 ML VIAL 1 VIAL IV SCH (18:00)
--- NOTE | 2019-02-14 18:09 | DI ---
EXAM: Single View Chest HISTORY: Intubated COMPARISON:07/11/2018 FINDINGS: Trace hilar lung opacities present. Endotracheal tube tip is approximately 2.5 cm above the oma. No definitive pneumothorax or effusions are identified. Cardiac size appears within normal limits. Mediastinal silhouette demonstrates faint atherosclerotic arterial vascular calcifications seen at t he thoracic aortic arch. Bony structure evaluation is limited on single view chest. IMPRESSION: Trace perihilar opacities which can be seen with trace perihilar pneumonia infiltrate or trace perihi lar edema. Endotracheal tube tip is approximately 2.5 cm above the oma.
--- NOTE | 2019-02-14 18:21 | ED.PDOC ---
General ED Provider: Dr. RYAN ZALDIVAR Chief Complaint: Overdose Stated Complaint: WMS REPORTED THAT THE PT HAD TAKEN 29 100MG OF THIAMINE /18 ZANAFLEX TABS 4MG EACH. IN ADDITION PT HAS TAKEN WELLBUTRIN 300MG TOTAL PILLS CONSUMMED 27 TABS . ARRIVED AOX3 AND STATED THAT SHE WAS TRYING TO HET HIGH ON THESE MEDS . Time Seen by Physician: 15:48 Mode of Arrival: Stretcher Information Source: Patient, EMT, Police Exam Limitations: No limitations Primary Care Provider: ANNA MARIE KLINE Nursing and Triage Documentation Reviewed and Agree: Yes Does patient meet sepsis criteria?: No System Inflammatory Response Syndrome: Not Applicable Sepsis Protocol: For patient's 13 years and over: Temp is 96.8 and below OR 101 and greater Pulse >90 BPM Resp >20/minute Acutely Altered Mental Status Are patient's symptoms suggestive of a new infection, such as: -Pneumonia -Skin, Soft Tissue -Endocarditis -UTI -Bone, Joint Infection -Implantable Device -Acute Abdominal Infection -Wound Infection -Meningitis -Blood Stream Catheter Infection -Unknown Miscellaneous Complaint Exam - Complex/Multi-System Complaint/Exam Onset/Duration: TOOK MEDS ABOUT 10 AM TODAY Symptoms Are: Still present Episodes Lasting: Hours Initial Severity: Severe Current Severity: Severe Location of Pain: NO PAIN Associated Signs and Symptoms: Denies: Decreased responsiveness, Confusion, Agitation, Dizziness, Weakness, Syncope (PT HAD A SEIZURE EVENT ABOUT 1 HOUR AFTER PRESENTATION), Headache, Short of air, Cough, Wheezing, Hemoptysis, Chest pain, Palpitations, Edema, Nausea, Vomiting, Diarrhea, Abdominal pain, Back pain , Dysuria, Hematemesis, Melena, Decreased oral intake, Fever, Diaphoresis, Immunocompromised, Anticoagulation Therapy, Recent medication changes, Indwelling medical transport specialist, Prior MRSA, Prior VRE, Recent trauma, Remote trauma Recent Echo/LV Function: No Respiratory Distress: None JVD Present: No Tachypnea Present: No Stridor Present: No Abdominal Findings: Present: Normal findings Glascow Coma Scale (see protocol): 15 ON ARRIVAL AND THROUGH OUT PRESENTATION Meningeal Signs Positive: No Focal Weakness: Present: None Focal Sensory Loss: Present: None Gait: Unable Gag Reflex Present: Yes Babinski Sign: Negative Right, Negative Left Differential Diagnosis: Metabolic Abnormality Quality Indicators for Cardiac Chest Pain: EKG in 10min. Quality Indicators for AMI: EKG in 10min. Review of Systems - Review Of Systems Constitutional: Reports: No symptoms Eyes: Reports: No symptoms Ears, Nose, Mouth, Throat: Reports: No symptoms Respiratory: Reports: No symptoms Cardiac: Reports: No symptoms GI: Reports: No symptoms : Reports: No symptoms Musculoskeletal: Reports: No symptoms Skin: Reports: No symptoms Neurological: Reports: Tonic-Clonic seizures Endocrine: Reports: No symptoms Hematologic/Lymphatic: Reports: No symptoms All Other Systems: Reviewed and Negative Past Medical History - Past Medical History Endocrine: Reports: Unknown Cardiovascular: Reports: Unknown Respiratory: Reports: Unknown Hematological: Reports: Unknown Gastrointestinal: Reports: Unknown Genitourinary: Reports: Unknown Neuro/Psych: Reports: Anxiety, Depression, Bipolar Disorder Musculoskeletal: Reports: Unknown Cancer: Reports: Unknown Last Menstrual Period: last week Other Pertinent Past Medical History: EXPLOSIVE DISORDER - Surgical History General Surgical History: Reports: Adenoidectomy, Other (TUBES IN EARS) - Family History Family History: Reports: Unknown - Social History Smoking Status: Current every day smoker, Heavy tobacco smoker Hx Substance Use: No Alcohol Screening: None Physical Exam - Physical Exam Appearance: Ill-appearing Ill-appearing: Severe Pain Distress: Mild Eyes: OBEY, EOMI, Conjunctiva clear ENT: Ears normal, Nose normal, Oropharynx normal Respiratory: Airway patent, Breath sounds clear, Breath sounds equal, Respirations nonlabored Cardiovascular: RRR, Pulses normal, No rub, No murmur GI/: Soft, Nontender, No masses, Bowel sounds normal, No Organomegaly Musculoskeletal: Normal strength, ROM intact, No edema, No calf tenderness Skin: Warm, Dry, Normal color Neurological: Sensation intact, Motor intact, Reflexes intact, Cranial nerves intact, Alert, Oriented Psychiatric: Affect appropriate, Mood appropriate Interpretation - Race Steward Rate: Normal Rhythm: Sinus Ectopy: None - EKG Interpretation Rate: Normal Rhythm: Sinus Ectopy: None [place]: NL ST Segment: Normal Procedures - Intubation Indication: Present: Other (SEIZURE/ OVERDOSE / AIR WAR PROTECTION) Time of Intubation: 17:33 Medications: Yes: Norcuron, Succinylcholine, Propofol (DRIP) Type of Tube Used: Endotracheal Tube Size: 7.0 Cricoid Pressure Used: Yes Tube Jeffers Used: Yes Position of Tube at Lip: 22 CM Suction Used: Yes Glidescope Used: No CO2 Detector Used: Yes Lung Sounds Equal Bilaterally: Yes Intubation Complications: Present: No complications Tube Inserted By: RAFATI Tube Placement Verified by X-ray: Yes Physician Notification - Case Discussed Physician Notified: demo Time of Notification: 19:00 (transfer ) Critical Care Note - Critical Care Note Total Time (mins): 0 Course - Course Hematology/Chemistry: 02/14/19 16:05 02/14/19 16:05 Orders, Labs, Meds: Lab Review 02/14/19 02/14/19 02/14/19 15:50 16:00 16:05 WBC 13.77 H RBC 4.20 Hgb 13.4 Hct 37.8 MCV 90.0 MCH 31.9 H MCHC 35.4 RDW Coeff of Mee 12.4 Plt Count 183 Immature Gran % (Auto) 0.2 Neut % (Auto) 70.8 Lymph % (Auto) 23.7 [place] % (Auto) 4.9 Eos % (Auto) 0.1 Baso % (Auto) 0.3 Immature Gran # (Auto) 0.0 Neut # (Auto) 9.8 H Lymph # (Auto) 3.3 [place] # (Auto) 0.7 Eos # (Auto) 0.0 Baso # (Auto) 0.0 Puncture Site Rr O2 Saturation 99.0 ABG pH 7.359 ABG pCO2 32.7 L ABG pO2 134.0 H ABG HCO3 18.4 L ABG Total CO2 19 L ABG Base Excess -7 L Frankie Test + O2 Delivery Device Vent FiO2 % 32.0 Sodium Potassium Chloride Carbon Dioxide Anion Gap BUN Creatinine Estimated GFR (MDRD) BUN/Creatinine Ratio Glucose Calcium Magnesium 1.31 L Total Bilirubin AST ALT Alkaline Phosphatase Total Protein Albumin Globulin Albumin/Globulin Ratio Serum , Qual Urine Color Urine Clarity Urine pH Ur Specific [place] Urine Protein Urine Glucose (UA) Urine Ketones Urine Blood Urine Nitrite Urine Bilirubin Urine Urobilinogen Ur Leukocyte Esterase Urine Microscopic RBC Ur Squamous Epith Cells Salicylate Level mg/dL Urine Opiates Screen Ur Oxycodone Screen Urine Methadone Screen Ur Propoxyphene Screen Acetaminophen Ur Barbiturates Screen Valproic Acid U Tricyclic Antidepress Ur Phencyclidine Scrn Ur Amphetamine Screen U Methamphetamines Scrn U Benzodiazepines Scrn Urine Cocaine Screen U Cannabinoids Screen Plasma/Serum Alcohol 02/14/19 02/14/19 02/14/19 16:05 16:05 16:05 WBC RBC Hgb Hct MCV MCH MCHC RDW Coeff of Mee Plt Count Immature Gran % (Auto) Neut % (Auto) Lymph % (Auto) [place] % (Auto) Eos % (Auto) Baso % (Auto) Immature Gran # (Auto) Neut # (Auto) Lymph # (Auto) [place] # (Auto) Eos # (Auto) Baso # (Auto) Puncture Site O2 Saturation ABG pH ABG pCO2 ABG pO2 ABG HCO3 ABG Total CO2 ABG Base Excess Frankie Test O2 Delivery Device FiO2 % Sodium 131.0 L Potassium 3.43 L Chloride 101.4 Carbon Dioxide 19.3 L Anion Gap 13.73 BUN 7.4 Creatinine 0.79 Estimated GFR (MDRD) 83.00 BUN/Creatinine Ratio 9.36 Glucose 88.3 Calcium 9.15 Magnesium Total Bilirubin 0.37 AST 19.8 ALT 12.3 Alkaline Phosphatase 58.1 Total Protein 7.25 Albumin 4.43 Globulin 2.82 Albumin/Globulin Ratio 1.57 Serum , Qual Negative Urine Color Urine Clarity Urine pH Ur Specific [place] Urine Protein Urine Glucose (UA) Urine Ketones Urine Blood Urine Nitrite Urine Bilirubin Urine Urobilinogen Ur Leukocyte Esterase Urine Microscopic RBC Ur Squamous Epith Cells Salicylate Level mg/dL < 1.00 Urine Opiates Screen Ur Oxycodone Screen Urine Methadone Screen Ur Propoxyphene Screen Acetaminophen < 10.0 L Ur Barbiturates Screen Valproic Acid 79.84 U Tricyclic Antidepress Ur Phencyclidine Scrn Ur Amphetamine Screen U Methamphetamines Scrn U Benzodiazepines Scrn Urine Cocaine Screen U Cannabinoids Screen Plasma/Serum Alcohol < 10.0 02/14/19 02/14/19 18:25 18:25 WBC RBC Hgb Hct MCV MCH MCHC RDW Coeff of Mee Plt Count Immature Gran % (Auto) Neut % (Auto) Lymph % (Auto) [place] % (Auto) Eos % (Auto) Baso % (Auto) Immature Gran # (Auto) Neut # (Auto) Lymph # (Auto) [place] # (Auto) Eos # (Auto) Baso # (Auto) Puncture Site O2 Saturation ABG pH ABG pCO2 ABG pO2 ABG HCO3 ABG Total CO2 ABG Base Excess Frankie Test O2 Delivery Device FiO2 % Sodium Potassium Chloride Carbon Dioxide Anion Gap BUN Creatinine Estimated GFR (MDRD) BUN/Creatinine Ratio Glucose Calcium Magnesium Total Bilirubin AST ALT Alkaline Phosphatase Total Protein Albumin Globulin Albumin/Globulin Ratio Serum , Qual Urine Color Yellow Urine Clarity Clear Urine pH 5.5 Ur Specific [place] 1.025 Urine Protein Negative Urine Glucose (UA) Negative Urine Ketones Negative Urine Blood Trace-intact Urine Nitrite Negative Urine Bilirubin Negative Urine Urobilinogen 0.2 Ur Leukocyte Esterase Negative Urine Microscopic RBC 2-5 Ur Squamous Epith Cells Not present Salicylate Level mg/dL Urine Opiates Screen Negative Ur Oxycodone Screen Negative Urine Methadone Screen Negative Ur Propoxyphene Screen Negative Acetaminophen Ur Barbiturates Screen Negative Valproic Acid U Tricyclic Antidepress Negative Ur Phencyclidine Scrn Negative Ur Amphetamine Screen Negative U Methamphetamines Scrn Negative U Benzodiazepines Scrn Negative Urine Cocaine Screen Negative U Cannabinoids Screen Negative Plasma/Serum Alcohol Orders Category Date Time Status ABG DRAW REQUEST Stat CARDIO 02/14/19 15:50 Ordered EKG-(ED ONLY) Stat CARDIO 02/14/19 15:49 Completed ED [employer] APPLIED ONCE EMERGENCY 02/14/19 15:49 Active ABG Stat LAB 02/14/19 15:50 Completed ACETAMINOPHEN Stat LAB 02/14/19 16:05 Completed BLOOD ALCOHOL Stat LAB 02/14/19 16:05 Completed CBC W/ AUTO DIFF Stat LAB 02/14/19 16:05 Completed COMPREHENSIVE METABOLIC PANEL Stat LAB 02/14/19 16:05 Completed DRUG SCREEN, URINE, RAPID Stat LAB 02/14/19 18:25 Completed MAGNESIUM Stat LAB 02/14/19 16:00 Completed SALICYLATE Stat LAB 02/14/19 16:05 Completed SERUM Stat LAB 02/14/19 16:05 Completed URINALYSIS C & S IF INDICATED Stat LAB 02/14/19 18:25 Completed VALPORIC ACID (DEPAKENE) Stat LAB 02/14/19 16:05 Completed Activated Charcoal [Insta-Josseline in Aqueous Base] MEDS 02/14/19 16:47 Discontinued 25 gm PO ONCE STA Charcoal/Sorbitol Solution [Insta-Josseline W/ Sorbitol] MEDS 02/14/19 16:28 Discontinued 70 gm PO ONCE STA Etomidate [Amidate] MEDS 02/14/19 17:28 Discontinued 20 mg IVP .STK-MED ONE Lorazepam [Ativan] MEDS 02/14/19 19:05 Discontinued 2 mg IVP ONCE STA Lorazepam [Ativan] 2 ml MEDS 02/14/19 17:13 Discontinued .ROUTE .STK-MED Premix Vial [Premix Infusion 100 ml Vial] 1 vial MEDS 02/14/19 18:00 Ordered Propofol Inj [Diprivan 100 ml Vial] 1,000 mg IV 100 mcg/kg/min Propofol Inj [Diprivan 100 ml Vial] 100 ml MEDS 02/14/19 17:46 Discontinued IV .STK-MED Succinylcholine Chloride [Anectine] MEDS 02/14/19 17:15 Discontinued 20 mg .ROUTE .STK-MED ONE Vecuronium [place] [Norcuron] MEDS 02/14/19 17:37 Discontinued 8 mg IVP ONCE STA CHEST, 1V AP ONLY Stat RADS 02/14/19 17:37 Completed Medications Generic Name Dose Route Start Last Admin Trade Name Freq PRN Reason Stop Dose Admin Propofol 1,000 mg/ Sterile 100 mls @ 55.62 mls/hr 02/14/19 18:00 02/14/19 18: 54 Water IV 20 mcg/kg/min .[id number] KAMLA 11.12 mls/hr Titration Protocol 100 MCG/KG/MIN Discontinued Medications Generic Name Dose Route Start Last Admin Trade Name Freq PRN Reason Stop Dose Admin Charcoal 25 gm 02/14/19 16:47 02/14/19 16:58 Insta-Josseline In Aqueous Base PO 02/14/19 16:48 25 gm ONCE STA Administration Charcoal/Sorbitol 70 gm 02/14/19 16:28 02/14/19 17:48 Insta-Josseline W/ Sorbitol PO 02/14/19 16:29 Not Given ONCE STA Lorazepam 2 mg 02/14/19 19:05 Ativan IVP 02/14/19 19:06 ONCE STA Vecuronium [place] 8 mg 02/14/19 17:37 02/14/19 17:41 Norcuron IVP 02/14/19 17:38 8 mg ONCE STA Administration Vital Signs: Temp Pulse Resp BP Pulse Ox 02/14/19 18:54 112 H 29 H 103/69 02/14/19 18:47 116 H 100 02/14/19 18:30 121 H 30 H 119/87 02/14/19 18:13 124 H 30 H 117/76 02/14/19 17:57 122 H 24 118/73 02/14/19 17:55 16 02/14/19 17:29 143 H 128/92 H 99 02/14/19 15:46 99.1 F 133 H 20 137/91 H 97 Departure - Departure Time of Disposition: 19:07 Disposition: TSF OTHER Discharge Problem: Drug overdose Condition: Stable Pt referred to PMD for follow-up: Yes IPMP verified?: No Allergies/Adverse Reactions: Allergies meloxicam [From Mobic] Adverse Reaction (Verified 02/14/19 16:02) tramadol Adverse Reaction (Verified 02/14/19 16:02) Home Medications: Ambulatory Orders Multivitamin [Once Daily] 1 each PO DAILY 10/15/14 Bupropion HCl [Wellbutrin Xl] 150 mg PO DAILY 03/17/16 Clotrimazole/Betamethasone Dip [Lotrisone Cream] 1 applic TP BID #15 cream..g. 04/20/16 Tizanidine HCl [Zanaflex] 4 mg PO BID 03/08/18
[2019-02-14] MEDS ORDERED: ATIVAN IVP STA (19:05)
[2019-02-14 19:24] VITALS: TEMP 97
[2019-02-14 19:41] VITALS: BP 111/73
== END 2019-02-14 20:20 | disposition short-term general hospital (02) ==
LOC: ED 15:46
DX: T45.2X2A Poisoning by vitamins, intentional self-harm, initial encounter (principal); T42.8X2A Poisoning by antiparkinsonism drugs and other central muscle-tone depressants, intentional self-harm, initial encounter; T43.292A Poisoning by other antidepressants, intentional self-harm, initial encounter; R56.9 Unspecified convulsions; F17.210 Nicotine dependence, cigarettes, uncomplicated; Z79.899 Other long term (current) drug therapy
CPT/HCPCS: 36415; 80053; 80164; 80306; 80307; 81001; 82803; 83735; 84703; 85025; 93005; 93010; 94002; 96361; 96365; 96366; 96375; 99291; 99292

== ENCOUNTER 2019-02-14 20:21 | Outpatient (CLI) ==
[2019-02-14 16:00] VITALS: BMI 36.1
== END 2019-02-14 20:37 | disposition short-term general hospital (02) ==
LOC: AMBL 20:21
PROVIDERS: ATTEND Internal Medicine Geriatric Medicine
DX: R56.9 Unspecified convulsions (principal); R40.4 Transient alteration of awareness; T45.2X2A Poisoning by vitamins, intentional self-harm, initial encounter; T42.8X2A Poisoning by antiparkinsonism drugs and other central muscle-tone depressants, intentional self-harm, initial encounter; T43.292A Poisoning by other antidepressants, intentional self-harm, initial encounter; I95.2 Hypotension due to drugs; T41.295A Adverse effect of other general anesthetics, initial encounter

== ENCOUNTER 2019-02-27 11:52 | Outpatient (CLI) | payer MEDICAID, OTHER | END 2019-02-27 11:53 | disposition home or self-care (01) | LOC: RHC-LAB 11:52 → FCC-LAB 11:53 | PROVIDERS: ATTEND Family Medicine | DX: J02.9 Acute pharyngitis, unspecified (principal) | CPT/HCPCS: 87651 ==